=== PATIENT | female | born 1970 | race Hispanic/Latino ===

== ENCOUNTER 2016-10-22 22:28 | Emergency (ER) | payer SELFPAY ==
[~2016-10-22] VITALS: Ht 160 cm; Wt 61.3 kg
[2016-10-22 23:40] LABS: HEMATOCRIT 32.1 % (36.0-46.0); MCH 31.4 PG (29.0-34.0); MCHC 34.6 G/DL (30.0-36.0); MCV 90.7 FL (83-99); MEAN PLAT.VOLUME 10.1 uM^3 (9.5-12.4); PLATELET COUNT 227 K/uL (156-360); RBC DIS.WIDTH-CV 12.3 % (11.8-14.6); RBC DIS.WIDTH-SD 40.7 % (39-53); RED BLOOD COUNT 3.54 M/uL (3.80-5.20); WHITE BLOOD COUNT 11.1 K/uL (4.1-10.2)
[2016-10-22 23:53] LABS: CHLORIDE 101 mEq/L (99-109); POTASSIUM 3.8 mEq/L (3.7-5.4); SODIUM 136 mEq/L (136-147)
[2016-10-22 23:55] LABS: GLUCOSE 151 mg/dL (70-99)
[2016-10-22 23:56] LABS: ANION GAP 11 MEQ/L (2-14)
[2016-10-22 23:57] LABS: TOTAL BILIRUBIN 0.5 mg/dL (0.0-1.0)
[2016-10-22 23:59] LABS: ALKALINE PHOSPHATASE 117 IU/L (3-129); GFR ESTIMATE (CALCULATED) > 59 mL/min/
[2016-10-23] LABS: UREA NITROGEN (BUN) 11 mg/dL (9-23)
[2016-10-23 00:01] LABS: DIRECT BILIRUBIN 0.3 mg/dL (0.0-0.3)
[2016-10-23 00:02] LABS: LIPASE 133 U/L (1.0-51.0); TROP-I INTERPRETATION NEGATIVE; TROPONIN-I < 0.01 ng/mL (0.0-0.30)
[2016-10-23 01:31] LABS: ADD MIUA? YES; BILIRUBIN NEGATIVE; BLOOD SMALL; COLOR YELLOW ((YELLOW)); GLUCOSE (STRIP) NEGATIVE; KETONES NEGATIVE; LEUKOCYTES MODERATE; NITRITE NEGATIVE; PROTEIN (STRIP) NEGATIVE; SPECIFIC GRAVITY 1.015 (1.000-1.030); UROBILINOGEN 0.2 MG/DL (0.2-1.0)
[2016-10-23 01:36] LABS: BACTERIA NONE SEEN /HPF; EPITHELIAL CELLS 1+ /HPF; MUCUS NONE SEEN /LPF; RED BLOOD CELLS 0-5 /HPF (0-5); UCUL ADDED? NO; WHITE BLOOD CELLS 0-5 /HPF (0-5)
[2016-10-23 02:15] VITALS: BP 138/71
== END 2016-10-23 02:15 | disposition home or self-care (01) ==
LOC: EME 22:28
PROVIDERS: Emergency Medicine
DX: G89.18 Other acute postprocedural pain (principal)
CPT/HCPCS: 71020; 71260; 74177; 80048; 80076; 81003; 83690; 83880; 84484; 85027; 87086; 93005; 99281; 99285; J7030